=== PATIENT | female | born 1960 | race Caucasian/White ===

== ENCOUNTER 2019-09-07 15:11 | Emergency (ER) | payer SELFPAY ==
[~2019-09-07] VITALS: Ht 154.9 cm; Wt 96.6 kg
[2019-09-07 15:35] VITALS: BP 137/79; Ht 154.9 cm; Wt 96.6 kg
== END 2019-09-07 18:06 | disposition left against medical advice (07) ==
LOC: ED 15:11
DX: Z53.21 Procedure and treatment not carried out due to patient leaving prior to being seen by health care provider (principal)